=== PATIENT | male | born 1945 | race Caucasian/White ===

== ENCOUNTER 2020-04-05 18:32 | Emergency (ER) | payer OTHER ==
[~2020-04-05] VITALS: Ht 165.1 cm; Wt 63.5 kg
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
[2020-04-05] MEDS: ACETAMINOPHEN 325 MG TABLET PO ONE (19:30)
[2020-04-05] MEDS ORDERED: IBUPROFEN 600 MG TABLET ONE (20:24)
[2020-04-05] MEDS: IBUPROFEN 600 MG TABLET PO ONE (20:30)
--- NOTE | 2020-04-05 20:45 | NUR ---
Patient discharged to home in stable condition. Written and verbal after care instructions given. Patient verbalizes understanding of instruction and RX. Pt forgot to sign discharge paperwork. vss. Picked up by daughter.
[2020-04-05 20:46] VITALS: BP 121/68
== END 2020-04-05 20:46 | disposition home or self-care (01) ==
LOC: ER 18:35
DX: S13.4XXA Sprain of ligaments of cervical spine, initial encounter (principal); S20.212A Contusion of left front wall of thorax, initial encounter; S09.8XXA Other specified injuries of head, initial encounter; M79.622 Pain in left upper arm; I10 Essential (primary) hypertension; E11.9 Type 2 diabetes mellitus without complications; Z88.0 Allergy status to penicillin; V49.49XA Driver injured in collision with other motor vehicles in traffic accident, initial encounter; Y93.89 Activity, other specified; Y92.413 State road as the place of occurrence of the external cause; Y99.8 Other external cause status
CPT/HCPCS: 70450-TC; 71100-TC; 72125-TC; 73030-TC